=== PATIENT | male | born 1945 | race Caucasian/White ===

== ENCOUNTER 2021-09-10 12:50 | Emergency (ER) | payer OTHER ==
[~2021-09-10] VITALS: Ht 177.8 cm; Wt 97.5 kg
[2021-09-10] MEDS ORDERED: COZAAR50 MG PO (13:15)
[2021-09-10] MEDS ORDERED: LANOXIN125 MCG PO (13:16)
[2021-09-10] MEDS ORDERED: WARFARIN SODIUM10 MG (13:16)
[2021-09-10] MEDS ORDERED: VITAMIN D310 MCG/1 M (13:17)
[2021-09-10] MEDS ORDERED: DYRENIUM50 MG (13:17)
[2021-09-10] MEDS ORDERED: METOPROLOL SUCC50 MG PO (13:17)
[2021-09-10] MEDS ORDERED: PRESERVISION A1 EAC1 PO (13:18)
[2021-09-10] MEDS ORDERED: CIPRO500 MG PO (14:59)
[2021-09-10] MEDS ORDERED: DICLOFENAC SODI75 MG PO (14:59)
== END 2021-09-10 15:36 | disposition home or self-care (01) ==
LOC: ER 12:50
DX: N50.811 Right testicular pain (principal); N45.1 Epididymitis